=== PATIENT | male | born 1975 | race Caucasian/White ===

== ENCOUNTER 2016-10-23 17:19 | Emergency (ER) | payer OTHER ==
[~2016-10-23 17:19] MED LIST: LEXAPRO; LISINOPRIL; SYNTHROID0.05 MG
== END 2016-10-23 17:51 | disposition home or self-care (01) ==
LOC: SED 17:19
DX: S70.12XA Contusion of left thigh, initial encounter (principal); I10 Essential (primary) hypertension; E03.9 Hypothyroidism, unspecified; F17.200 Nicotine dependence, unspecified, uncomplicated; V43.52XA Car driver injured in collision with other type car in traffic accident, initial encounter; Y92.410 Unspecified street and highway as the place of occurrence of the external cause; Y93.89 Activity, other specified
CPT/HCPCS: 99283